=== PATIENT | male | born 1970 | race Hispanic/Latino ===

== ENCOUNTER 2019-10-02 08:01 | Outpatient (CLI) | payer OTHER ==
--- NOTE | 2019-10-02 09:02 | RAD ---
EXAM: Chest 2 views: HISTORY: Dizziness and giddiness; hypertension COMPARISON: None. FINDINGS: There is a normal-sized cardiomediastinal silhouette. There is no evidence of consolidation, mass, or pleural effusion. The bones are unremarkable. IMPRESSION: No evidence of acute cardiopulmonary disease
--- NOTE | 2019-10-02 09:08 | ULT ---
Ultrasound of theabdomen: 10/02/2019 COMPARISON:None available HISTORY:Abdominal pain TECHNIQUE: Multiplanar grayscale sonographic imaging of theabdomen FINDINGS:Imaged IVC and aorta appear grossly unremarkable. Imaged pancreas within normal limits, part ially obscured by bowel gas. The hepatic parenchyma is heterogeneous and echogenic, which may signify hepatocellular disease, such as hepatic steatosis. No gallbladder wall thickening or pericholecystic fluid. No gallstones are seen. The fuel conversion technician reports a negative Beltran's sign. The common bile duct is at the upper limits of normal in size, measuring approximately 5-6 mm. The right kidney measures 13.8 cm in craniocaudal dimension. There is a 5 mm echogenic focus within t he lower pole the right kidney which may signify a small stone. The left kidney measures 12.8 cm cm in craniocaudal dimension and demonstrates no stone, hydronephrosis, or mass. The spleen is upper limits of normal in size, measuring 12.7 cm. IMPRESSION:Possible hepatic steatosis. No cholelithiasis or evidence of cholecystitis. Possible subce ntimeter stone within lower pole of right kidney.
== END 2019-10-02 08:02 | disposition home or self-care (01) ==
LOC: BICULT 08:01
PROVIDERS: ATTEND Family Medicine
DX: I10 Essential (primary) hypertension (principal); R10.10 Upper abdominal pain, unspecified; R42 Dizziness and giddiness
CPT/HCPCS: 71046; 93975